=== PATIENT | female | born 1985 | race American Indian/Alaskan Native ===

== ENCOUNTER 2016-08-31 06:08 | Emergency (ER) | payer MEDICAID ==
[2016-08-31 06:28] VITALS: BP 110/73
[2016-08-31] MEDS ORDERED: MOTRIN PO ONE (08:42)
--- NOTE | 2016-08-31 08:46 | Emergency Department Report ---
ED ENT HPI - General Chief complaint: Earache Stated complaint: RT SIDE PAIN/EARACHE FACIAL AND HEAD SWELLING Time Seen by Provider: 08/31/16 08:41 Source: patient Mode of arrival: Ambulatory Limitations: No Limitations - History of Present Illness Initial comments: 31-year-old -[place] female comes in for complaint of right side pain and ear ache with facial swelling since yesterday. Patient denies any fever or chills she does report she has a few body aches she took Tessa Aspirin yesterday with no relief. Patient currently has no past medical history currently takes no medications and has no known drug allergies. She denies any recent URIs no allergies. She denies swimming denies washing her hair recently. MD complaint: ear pain, other (right jaw pain) - Related Data Home Medications Medication Instructions Recorded Confirmed Last Taken Pnv with Ca,No.72/Iron/FA 1 tab PO DAILY 02/13/13 02/13/13 02/12/13 [ Plus Tablet] 1 tab Previous Rx's Medication Instructions Recorded Last Taken Type Amoxicillin [Amoxicillin TAB] 875 mg PO BID #14 tablet 08/31/16 Unknown Rx Ofloxacin 0.3% [Ocuflox] 5 drops OP QDAY #1 bottle 08/31/16 Unknown Rx Allergies Allergy/AdvReac Type Severity Reaction Status Date / Time No Known Allergies Allergy Verified 02/12/13 08:43 ED Dental HPI - General Chief complaint: Earache Stated complaint: RT SIDE PAIN/EARACHE FACIAL AND HEAD SWELLING Time Seen by Provider: 08/31/16 08:41 Source: patient Mode of arrival: Ambulatory Limitations: No Limitations - Related Data Home Medications Medication Instructions Recorded Confirmed Last Taken Pnv with Ca,No.72/Iron/FA 1 tab PO DAILY 02/13/13 02/13/13 02/12/13 [ Plus Tablet] 1 tab Previous Rx's Medication Instructions Recorded Last Taken Type Amoxicillin [Amoxicillin TAB] 875 mg PO BID #14 tablet 08/31/16 Unknown Rx Ofloxacin 0.3% [Ocuflox] 5 drops OP QDAY #1 bottle 08/31/16 Unknown Rx Allergies Allergy/AdvReac Type Severity Reaction Status Date / Time No Known Allergies Allergy Verified 02/12/13 08:43 ED Review of Systems ROS: Stated complaint: RT SIDE PAIN/EARACHE FACIAL AND HEAD SWELLING Other details as noted in HPI ED Past Medical Hx - Past Medical History Previous Medical History?: No Hx Hypertension: No Hx Congestive Heart Failure: No Hx Diabetes: No Hx Deep Vein Thrombosis: No Hx Renal Disease: No Hx Sickle Cell Disease: No Hx Seizures: No Hx Asthma: No Hx COPD: No - Surgical History Past Surgical History?: No - Social History Smoking Status: Never Smoker Substance Use Type: None - Medications Home Medications: Home Medications Medication Instructions Recorded Confirmed Last Taken Type Pnv with Ca,No.72/Iron/FA 1 tab PO DAILY 02/13/13 02/13/13 02/12/13 History [ Plus Tablet] 1 tab Amoxicillin [Amoxicillin TAB] 875 mg PO BID #14 tablet 08/31/16 Unknown Rx Ofloxacin 0.3% [Ocuflox] 5 drops OP QDAY #1 bottle 08/31/16 Unknown Rx ED Physical Exam - General Limitations: No Limitations General appearance: alert - Head Head exam: Present: atraumatic - Eye Eye exam: Present: normal appearance - Expanded ENT Exam Expanded Ear exam: Present: other (auricle tenderness to the right as well as tragus tenderness to the right ear) TM/Canal exam: Canal Discharge: Right TM (canals are very moist, erythematous, edematous), Canal Tenderness: Right TM Mouth exam: Present: normal external inspection - Neck Neck exam: Present: normal inspection, full ROM. Absent: tenderness, lymphadenopathy - Respiratory Respiratory exam: Present: normal lung sounds bilaterally - Cardiovascular Cardiovascular Exam: Present: regular rate, normal rhythm, normal heart sounds ED Course Vital Signs 08/31/16 06:24 Temperature 98.6 F Pulse Rate 82 Respiratory 18 Rate Blood Pressure 110/73 O2 Sat by Pulse 97 Oximetry ED Medical Decision Making - Medical Decision Making Patient's been evaluated by this provider in fast track. Discussed with patient that appears that she has a otitis externa and not able to appreciate the tympanic membrane secondary to tenderness on examination. Discussed the patient placed on antibiotics orally to rule out an otitis media. I discussed with patient that we will refer her to ear nose and throat for further evaluation. I discussed with patient I would give her ibuprofen to address her pain here now. We will discharge her home and ibuprofen. Patient verbalized understanding Critical care attestation.: If time is entered above; I have spent that time in minutes in the direct care of this critically ill patient, excluding procedure time. ED Disposition Clinical Impression: Otitis externa Qualifiers: Otitis externa type: unspecified type Laterality: right Chronicity: acute Qualified Code(s): H60.501 - Unspecified acute noninfective otitis externa, right ear Otitis media Qualifiers: Otitis media type: unspecified nonsuppurative Laterality: right Qualified Code( s): H65.91 - Unspecified nonsuppurative otitis media, right ear Disposition: DISCHARGED TO HOME OR SELFCARE Is pt being admited?: No Does the pt Need Aspirin: No Condition: Stable Instructions: Otitis Externa (ED), Otitis Media (ED) Additional Instructions: Complete antibiotics as prescribed. If symptoms persist or gets worse please follow up in the emergency room or follow-up with the ear, nose and throat specialist I have listed below. Prescriptions: Amoxicillin [Amoxicillin TAB] 875 mg PO BID #14 tablet Ofloxacin 0.3% [Ocuflox] 5 drops OP QDAY #1 bottle Referrals: PRIMARY MD WAQAR [Primary Care Provider] - 3-5 Days TRANG CARDONA MD [Staff Physician] - 3-5 Days Forms: Work/School Release Form(ED)
== END 2016-08-31 09:04 | disposition home or self-care (01) ==
LOC: ED 06:08
DX: H60.501 Unspecified acute noninfective otitis externa, right ear (principal); H65.91 Unspecified nonsuppurative otitis media, right ear
CPT/HCPCS: 99282

== ENCOUNTER 2019-06-03 17:57 | Inpatient (IN) | payer MEDICAID ==
[2019-06-03] MEDS ORDERED: MINERAL OIL 30 ML ORAL LIQD PO PRN (19:19)
[2019-06-03] MEDS ORDERED: ONDANSETRON 4 MG/2 ML INJ IV PRN (19:19)
[2019-06-03] MEDS ORDERED: BUTORPHANOL 2 MG/1 ML INJ IV PRN (19:19)
[2019-06-03] MEDS ORDERED: ePHEDrine SULFATE 50 MG/1 ML INJ IV PRN (19:19)
[2019-06-03] MEDS ORDERED: TERBUTALINE 1 MG/1 ML INJ IVP PRN (19:19)
[2019-06-03] MEDS ORDERED: LIDOCAINE (2%) 20 MG/1 ML VIAL 20 ML MDV INFILTRATI ONE (19:19)
[2019-06-03] MEDS ORDERED: TERBUTALINE 1 MG/1 ML INJ SUB-Q PRN (19:19)
[2019-06-03] MEDS ORDERED: fentaNYL 100 MCG/2 ML INJ IV PRN (19:19)
[2019-06-03] MEDS ORDERED: AMPICILLIN/NS 2 GM/100 ML 2 GM/100 ML BAG IV ONE (19:19)
[2019-06-03] MEDS ORDERED: PROMETHAZINE 25 MG TAB PO PRN (19:19)
[2019-06-03 19:43] LABS: Hematocrit 30.8 % (30.3-42.9); Hemoglobin 10.8 gm/dl (10.1-14.3); Mean Corpuscular HGB Conc 35 % (30-34); Mean Corpuscular Volume 71 fl (79-97); Platelet Count 279 K/mm3 (140-440); Red Blood Count 4.33 M/mm3 (3.65-5.03); Red Cell Distribution Width 17.8 % (13.2-15.2)
--- NOTE | 2019-06-03 19:48 | History and Physical Report ---
History of Present Illness Date of examination: 06/03/19 Date of admission: 06/03/2019 Chief complaint: Pt presents with c/o uc occurring q 3 min. History of present illness: 34 y/o AA presents at 40wks gestation. She initiated care at [facility] location at 17 wks. Pt has been co managed by [facility] r/t obesity but has been non complaint with f/u ob and [facility] visits. She reports at [facility] with c/o uc q 3 min. Pt admits to pos FM and denies any vag bleeding. Labs: A pos, Antibody screen neg, PLt 360, Rubella immune, RPR non reactive, HIV neg, H&H 11.3/33.9%, gc/chly/trich neg. GBS pos Past History Past Medical History: no pertinent history Past Surgical History: no surgical history [employer] UND[employer]ITER History: abnormal PAP smear Family/Genetic History: hypertension, other Social history: no significant social history - Obstetrical History Expected Date of Delivery: 06/03/19 Actual Gestation: 40 Week(s) 0 Day(s) : 5 Para: 2 Hx # Term Pregnancies: 2 Number of Pregnancies: 0 Spontaneous Abortions: 2 Induced : 0 Number of Living Children: 2 #2 Infant Gender: Female Method of Delivery: Vaginal Complications: none #1 Method of Delivery: Vaginal Complications: none Medications and Allergies Allergies Allergy/AdvReac Type Severity Reaction Status Date / Time No Known Allergies Allergy Verified 06/03/19 18:03 Home Medications Medication Instructions Recorded Confirmed Last Taken Type Pnv with Ca,No.72/Iron/FA 1 tab PO DAILY 02/13/13 06/03/19 02/12/13 History [ Plus Tablet] 1 tab Amoxicillin [Amoxicillin TAB] 875 mg PO BID #14 tablet 08/31/16 06/03/19 Unknown Rx Ofloxacin 0.3% [Ocuflox 0.3% opth] 5 drops OP QDAY #1 bottle 08/31/16 06/03/19 Unknown Rx Active Meds: Active Medications Butorphanol Tartrate (Stadol) 2 mg IV Q2H PRN PRN Reason: Pain , Severe (7-10) Ephedrine Sulfate (Ephedrine Sulfate) 10 mg IV Q2M PRN PRN Reason: Hypotension Fentanyl (Sublimaze) 100 mcg IV Q2H PRN PRN Reason: Labor Pain Oxytocin/Sodium Chloride (Pitocin/Ns 20 Unit/1000ml Drip) 20 units in 1,000 mls @ 125 mls/hr IV DIRECT WOLFGANG Oxytocin/Sodium Chloride (Pitocin/Ns 30 Unit/500ml) 30 units in 500 mls @ 1 mls/hr IV TITR WOLFGANG; Protocol Lactated Ringer's (Lactated Ringers) 1,000 mls @ 125 mls/hr IV DIRECT WOLFGANG Ampicillin Sodium (Ampicillin/Ns 1 Gm/50 Ml) 1 gm in 50 mls @ 100 mls/hr IV Q4HR WOLFGANG; Protocol Ampicillin Sodium (Ampicillin/Ns 2 Gm/100 Ml) 2 gm in 100 mls @ 100 mls/hr IV ONCE ONE; Protocol Stop: 06/03/19 20:18 Lidocaine (Xylocaine 2%) 20 ml INFILTRATI ONCE ONE Stop: 06/03/19 19:20 Mineral Oil (Mineral Oil) 30 ml PO QHS PRN PRN Reason: Constipation Miscellaneous Medication (Pnv With Ca,No.72/Iron/Fa [ Plus Tablet]) 1 tab PO DAILY WOLFGANG Ondansetron HCl (Zofran) 4 mg IV Q8H PRN PRN Reason: Nausea And Vomiting Promethazine HCl (Phenergan) 25 mg PO Q6H PRN PRN Reason: Nausea And Vomiting Terbutaline Sulfate (Brethine) 0.25 mg SUB-Q ONCE PRN PRN Reason: Hyperstimulation/Hypertonicity Terbutaline Sulfate (Brethine) 0.25 mg IVP ONCE PRN PRN Reason: Hyperstimulation/Hypertonicity Review of Systems All systems: negative - Vital Signs Vital signs: Vital Signs Pulse Pulse Ox 89 100 06/03/19 18:11 06/03/19 18:11 Temp Pulse Resp BP Pulse Ox 98.1 F 76 16 100 06/03/19 18:52 06/03/19 19:06 06/03/19 18:52 06/03/19 19:06 - Physical Exam Breasts: Positive: normal Abdomen: Positive: normal appearance, soft, normal bowel sounds Genitourinary (Female): Positive: normal external genitalia, normal perenium Vagina: Positive: normal moisture Uterus: Positive: other (gravid) Extremities: Positive: normal - Obstetrical FHR: category 1 FHR comments: FHT 130 with mod bowen pos accels and neg decels Uterine Contraction Monitor Mode: External Cervical Dilatation: 4 Cervical Effacement Percentage: 50 station: -3 Uterine Contraction Frequency (min): q3 Results All other labs normal. Assessment and Plan A: IUP @ 40 wks CAT I FHT + GBS Obesity P: Admit to L&D Abt protocal for pos GBS Pain meds prn Expectant mtg Anticipate - Patient Problems (1) 40 weeks gestation of Current Visit: Yes Status: Acute (2) Obesity (BMI 30-39.9) Current Visit: Yes Status: Acute (3) Positive GBS test Current Visit: Yes Status: Acute
[2019-06-03] MEDS ORDERED: OXYTOCIN DRIP 30 UNITS/500 ML BAG IV SCH (20:00)
[2019-06-03] MEDS: LACTATED RINGERS 1,000 ML IV SCH (22:56)
[2019-06-04] MEDS: AMPICILLIN/NS 1 GM/50 ML 1 GM/50 ML BAG IV SCH ×2 (03:53→08:06)
[2019-06-04] MEDS: LACTATED RINGERS 1,000 ML IV SCH (08:06)
[2019-06-04] MEDS: PRENATAL VIT27-FE FUMARATE-FOLIC ACID VIT TAB PO SCH (08:07)
--- NOTE | 2019-06-04 08:41 | Progress Note ---
Assessment and Plan A: IUP@40.1 wks CAT I FHT p: AROM cl fluid Continue monitoring with pit Anticipate - Patient Problems (1) 40 weeks gestation of Current Visit: Yes Status: Acute (2) Obesity (BMI 30-39.9) Current Visit: Yes Status: Acute (3) Positive GBS test Current Visit: Yes Status: Acute Subjective - Subjective Interval history: 34 y/o AA presents at 40wks gestation. She initiated care at [facility] location at 17 wks. Pt has been co managed by [facility] r/t obesity but has been non complaint with f/u ob and [facility] visits. She reports at [facility] with c/o uc q 3 min. Pt admits to pos FM and denies any vag bleeding. Labs: A pos, Antibody screen neg, PLt 360, Rubella immune, RPR non reactive, HIV neg, H&H 11.3/33.9%, gc/chly/trich neg. GBS pos Objective - Vital Signs Vital Signs: Vital Signs - 12hr 06/03/19 06/04/19 06/04/19 20:42 02:27 02:28 Temperature 98.8 F Pulse Rate 85 60 80 Respiratory 18 Rate Blood Pressure 113/73 [Right] O2 Sat by Pulse 94 94 Oximetry 06/04/19 06/04/19 06/04/19 02:32 02:33 02:38 Temperature Pulse Rate 76 Respiratory Rate Blood Pressure [Right] O2 Sat by Pulse 82 L 82 L 96 Oximetry 06/04/19 06/04/19 06/04/19 02:43 02:48 02:53 Temperature Pulse Rate 76 70 81 Respiratory Rate Blood Pressure [Right] O2 Sat by Pulse 98 99 99 Oximetry 06/04/19 06/04/19 06/04/19 02:58 03:03 03:08 Temperature Pulse Rate 78 91 H 67 Respiratory Rate Blood Pressure [Right] O2 Sat by Pulse 100 99 100 Oximetry 06/04/19 06/04/19 06/04/19 03:13 03:18 03:23 Temperature Pulse Rate 82 89 84 Respiratory Rate Blood Pressure [Right] O2 Sat by Pulse 98 99 99 Oximetry 06/04/19 06/04/19 06/04/19 03:28 03:33 03:46 Temperature Pulse Rate 80 86 105 H Respiratory Rate Blood Pressure [Right] O2 Sat by Pulse 97 97 99 Oximetry 06/04/19 06/04/19 06/04/19 03:51 03:56 04:01 Temperature Pulse Rate 100 H 84 90 Respiratory Rate Blood Pressure [Right] O2 Sat by Pulse 97 99 99 Oximetry 06/04/19 06/04/19 06/04/19 04:06 04:11 04:16 Temperature Pulse Rate 84 91 H 81 Respiratory Rate Blood Pressure [Right] O2 Sat by Pulse 100 99 100 Oximetry 06/04/19 06/04/19 06/04/19 04:21 04:26 04:31 Temperature Pulse Rate 85 82 79 Respiratory Rate Blood Pressure [Right] O2 Sat by Pulse 99 99 99 Oximetry 06/04/19 06/04/19 06/04/19 04:36 04:41 04:46 Temperature Pulse Rate 84 90 82 Respiratory Rate Blood Pressure [Right] O2 Sat by Pulse 98 99 98 Oximetry 06/04/19 06/04/19 06/04/19 04:51 04:56 05:01 Temperature Pulse Rate 83 84 89 Respiratory Rate Blood Pressure [Right] O2 Sat by Pulse 99 98 98 Oximetry 06/04/19 06/04/19 06/04/19 05:06 05:11 05:16 Temperature Pulse Rate 87 102 H 90 Respiratory Rate Blood Pressure [Right] O2 Sat by Pulse 98 99 99 Oximetry 06/04/19 06/04/19 06/04/19 05:21 05:26 05:30 Temperature Pulse Rate 71 75 79 Respiratory Rate Blood Pressure [Right] O2 Sat by Pulse 98 98 100 Oximetry 06/04/19 06/04/19 06/04/19 05:36 05:41 05:46 Temperature Pulse Rate 81 67 69 Respiratory Rate Blood Pressure [Right] O2 Sat by Pulse 97 100 98 Oximetry 06/04/19 06/04/19 06/04/19 05:51 05:56 06:01 Temperature Pulse Rate 68 78 68 Respiratory Rate Blood Pressure [Right] O2 Sat by Pulse 98 99 99 Oximetry 06/04/19 06/04/19 06/04/19 06:06 06:11 06:16 Temperature Pulse Rate 73 81 85 Respiratory Rate Blood Pressure [Right] O2 Sat by Pulse 98 96 97 Oximetry 06/04/19 06/04/19 06/04/19 06:21 06:26 06:31 Temperature Pulse Rate 78 91 H 76 Respiratory Rate Blood Pressure [Right] O2 Sat by Pulse 98 99 100 Oximetry 06/04/19 06/04/19 06/04/19 06:36 06:41 06:46 Temperature Pulse Rate 80 78 75 Respiratory Rate Blood Pressure [Right] O2 Sat by Pulse 100 98 97 Oximetry 06/04/19 06:51 Temperature Pulse Rate 83 Respiratory Rate Blood Pressure [Right] O2 Sat by Pulse 99 Oximetry - Exam Breasts: normal Abdomen: Present: normal appearance Uterus: Present: normal FHR: category 1 FHR comments: FHT 132 with mod bowen pos accels and no decels Uterine Contraction Monitor Mode: External Cervical Dilatation: 5 Cervical Effacement Percentage: 50 station: -2 Uterine Contraction Frequency (min): q3 Uterine Contraction Pattern: Regular Uterine Tone Measurement Phase: Resting Uterine Contraction Intensity: Moderate Extremities: normal - Labs Labs: Abnormal Labs 06/03/19 19:15 MCV 71 L MCH 25 L MCHC 35 H RDW 17.8 H Laboratory Results - last 24 hr 06/03/19 06/03/19 19:15 19:15 WBC 8.2 RBC 4.33 Hgb 10.8 Hct 30.8 MCV 71 L MCH 25 L MCHC 35 H RDW 17.8 H Plt Count 279 Blood Type A POSITIVE Antibody Screen Negative
[2019-06-04] MEDS ORDERED: [UNRECOGNIZED DRUG - REMARK] PO SCH (10:00)
--- NOTE | 2019-06-04 11:22 | Progress Note ---
Assessment and Plan A: IUP @ 40.1 wks CAT I FHT p: Continuing monitoring Anticipate - Patient Problems (1) 40 weeks gestation of Current Visit: Yes Status: Acute (2) Obesity (BMI 30-39.9) Current Visit: Yes Status: Acute (3) Positive GBS test Current Visit: Yes Status: Acute Subjective - Subjective Date of service: 06/04/19 Interval history: 34 y/o AA presents at 40wks gestation. She initiated care at [facility] at 17 wks. Pt has been co managed by [facility] r/t obesity but has been non complaint with f/u ob and [facility] visits. She reports at [facility] with c/o uc q 3 min. Pt admits to pos FM and denies any vag bleeding. Labs: A pos, Antibody screen neg, PLt 360, Rubella immune, RPR non reactive, HIV neg, H&H 11.3/33.9%, gc/chly/trich neg. GBS pos Objective - Vital Signs Vital Signs: Vital Signs - 12hr 06/04/19 06/04/19 06/04/19 02:27 02:28 02:32 Temperature Pulse Rate 60 80 Respiratory Rate Blood Pressure O2 Sat by Pulse 94 94 82 L Oximetry 06/04/19 06/04/19 06/04/19 02:33 02:38 02:43 Temperature Pulse Rate 76 76 Respiratory Rate Blood Pressure O2 Sat by Pulse 82 L 96 98 Oximetry 06/04/19 06/04/19 06/04/19 02:48 02:53 02:58 Temperature Pulse Rate 70 81 78 Respiratory Rate Blood Pressure O2 Sat by Pulse 99 99 100 Oximetry 06/04/19 06/04/19 06/04/19 03:03 03:08 03:13 Temperature Pulse Rate 91 H 67 82 Respiratory Rate Blood Pressure O2 Sat by Pulse 99 100 98 Oximetry 06/04/19 06/04/19 06/04/19 03:18 03:23 03:28 Temperature Pulse Rate 89 84 80 Respiratory Rate Blood Pressure O2 Sat by Pulse 99 99 97 Oximetry 06/04/19 06/04/19 06/04/19 03:33 03:46 03:51 Temperature Pulse Rate 86 105 H 100 H Respiratory Rate Blood Pressure O2 Sat by Pulse 97 99 97 Oximetry 06/04/19 06/04/19 06/04/19 03:56 04:01 04:06 Temperature Pulse Rate 84 90 84 Respiratory Rate Blood Pressure O2 Sat by Pulse 99 99 100 Oximetry 06/04/19 06/04/19 06/04/19 04:11 04:16 04:21 Temperature Pulse Rate 91 H 81 85 Respiratory Rate Blood Pressure O2 Sat by Pulse 99 100 99 Oximetry 06/04/19 06/04/19 06/04/19 04:26 04:31 04:36 Temperature Pulse Rate 82 79 84 Respiratory Rate Blood Pressure O2 Sat by Pulse 99 99 98 Oximetry 06/04/19 06/04/19 06/04/19 04:41 04:46 04:51 Temperature Pulse Rate 90 82 83 Respiratory Rate Blood Pressure O2 Sat by Pulse 99 98 99 Oximetry 06/04/19 06/04/19 06/04/19 04:56 05:01 05:06 Temperature Pulse Rate 84 89 87 Respiratory Rate Blood Pressure O2 Sat by Pulse 98 98 98 Oximetry 06/04/19 06/04/19 06/04/19 05:11 05:16 05:21 Temperature Pulse Rate 102 H 90 71 Respiratory Rate Blood Pressure O2 Sat by Pulse 99 99 98 Oximetry 06/04/19 06/04/19 06/04/19 05:26 05:30 05:36 Temperature Pulse Rate 75 79 81 Respiratory Rate Blood Pressure O2 Sat by Pulse 98 100 97 Oximetry 06/04/19 06/04/19 06/04/19 05:41 05:46 05:51 Temperature Pulse Rate 67 69 68 Respiratory Rate Blood Pressure O2 Sat by Pulse 100 98 98 Oximetry 06/04/19 06/04/19 06/04/19 05:56 06:01 06:06 Temperature Pulse Rate 78 68 73 Respiratory Rate Blood Pressure O2 Sat by Pulse 99 99 98 Oximetry 06/04/19 06/04/19 06/04/19 06:11 06:16 06:21 Temperature Pulse Rate 81 85 78 Respiratory Rate Blood Pressure O2 Sat by Pulse 96 97 98 Oximetry 06/04/19 06/04/19 06/04/19 06:26 06:31 06:36 Temperature Pulse Rate 91 H 76 80 Respiratory Rate Blood Pressure O2 Sat by Pulse 99 100 100 Oximetry 06/04/19 06/04/19 06/04/19 06:41 06:46 06:51 Temperature Pulse Rate 78 75 83 Respiratory Rate Blood Pressure O2 Sat by Pulse 98 97 99 Oximetry 06/04/19 06/04/19 06/04/19 08:46 09:01 09:30 Temperature 97.6 F Pulse Rate 84 90 Respiratory 16 Rate Blood Pressure 114/73 119/79 O2 Sat by Pulse Oximetry 06/04/19 06/04/19 06/04/19 10:20 10:30 11:01 Temperature 97.9 F Pulse Rate 77 85 Respiratory 16 Rate Blood Pressure 99/59 101/56 O2 Sat by Pulse Oximetry - Exam FHR: category 1 FHR comments: FHT 130 with mod bowen + accels neg decels Uterine Contraction Monitor Mode: External Cervical Dilatation: 7 Cervical Effacement Percentage: 80 station: -1 Uterine Contraction Frequency (min): q3 Uterine Contraction Pattern: Regular Uterine Tone Measurement Phase: Resting Uterine Contraction Intensity: Strong/Firm Extremities: normal - Labs Labs: Abnormal Labs 06/03/19 19:15 MCV 71 L MCH 25 L MCHC 35 H RDW 17.8 H Laboratory Results - last 24 hr 06/03/19 06/03/19 06/04/19 19:15 19:15 08:20 WBC 8.2 RBC 4.33 Hgb 10.8 Hct 30.8 MCV 71 L MCH 25 L MCHC 35 H RDW 17.8 H Plt Count 279 Hep Bs Antigen Non-reactive Blood Type A POSITIVE Antibody Screen Negative
[2019-06-04] MEDS ORDERED: LIDOCAINE (2%) 20 MG/1 ML VIAL 20 ML MDV INFILTRATI ONE (11:40)
[2019-06-04] MEDS ORDERED: miSOPROStol 200 MCG TAB PR ONE (12:30)
[2019-06-04] MEDS ORDERED: OXYTOCIN 10 UNIT/1 ML INJ ONE (12:31)
[2019-06-04] MEDS ORDERED: miSOPROStol 200 MCG TAB ONE (12:32)
[2019-06-04] MEDS: OXYTOCIN 20 UNIT/1000ML DRIP 20 UNITS/1,000 ML BAG IV SCH ×2 (12:43→14:02)
[2019-06-04] MEDS ORDERED: diphenhydrAMINE 50 MG CAP PO NR (13:00)
--- NOTE | 2019-06-04 13:20 | Procedure Note ---
OB Delivery Note - Delivery Date of Delivery: 06/04/19 Surgeon: TRANG HICKMAN [employer]: PRITESH FLOWER Estimated blood loss: other (600cc) - Vaginal Delivery position: OA Intrapartum events: shoulder dystocia Delivery augmentation: rupture of membranes, pitocin Delivery monitor: external FHT, external uterine Route of delivery: Delivery placenta: spontaneous Delivery laceration: 2nd degree Delivery repair: vicryl Anesthesia: local Delivery comments: Called to for delivery. Pt complete and pushing. of viable male . Head delivered with ease. After aprox 30 sec of trying to deliver infant's shoulders, a Shoulder Dystocia was called and 's shoulders were delivered easily with pt in Darlene position while suprapubic pressure was being applied. 8/9. After spontaneous delivery of placenta gushes of bright red blood was noted and pt's fundus became boggy. Hemostasis maintained with fundal massage, 10u of pitocin IM and Cytotec 800mcg MI. Upon uterine exploration a 2nd degree perineal laceration was noted and repaired with a 3-[address]-1. EBL 600 cc. Mom and baby stable. - A at 1 minute: 8 at 5 minutes: 9 Gender: Male (WT [id number] GMS)
[2019-06-04] MEDS ORDERED: PROMETHAZINE 25 MG TAB PO PRN (13:49)
[2019-06-04] MEDS ORDERED: diphenhydrAMINE 25 MG CAP PO PRN (13:49)
[2019-06-04] MEDS ORDERED: MAGNESIUM HYDROXIDE (MOM) ORAL LIQD UDC PO PRN (13:49)
[2019-06-04] MEDS ORDERED: LANOLIN/ZINC/DIMETHICONE (LANSINOH) 7 GM TP PRN (13:49)
[2019-06-04] MEDS ORDERED: PROMETHAZINE 25 MG RECT SUPP PR PRN (13:49)
[2019-06-04] MEDS ORDERED: ONDANSETRON 4 MG/2 ML INJ IV PRN (13:49)
[2019-06-04] MEDS ORDERED: WITCH HAZEL/ GLYCERIN PAD TP PRN (13:49)
[2019-06-04] MEDS ORDERED: ACETAMINOPHEN 325 MG TAB PO PRN (13:49)
[2019-06-04] MEDS: IBUPROFEN 600 MG TAB PO SCH ×2 (16:39→22:32)
[2019-06-05 01:02] LABS: Hematocrit 21.8 % (30.3-42.9); Hemoglobin 7.3 gm/dl (10.1-14.3)
[2019-06-05] MEDS: IBUPROFEN 600 MG TAB PO SCH ×4 (05:41→23:40)
[2019-06-05] MEDS ORDERED: IRON DEXTRAN COMPLEX 100 MG/2 ML INJ IM SCH ×2 (10:30→16:00)
--- NOTE | 2019-06-05 10:38 | Progress Note ---
Assessment and Plan - Patient Problems (1) Status post normal vaginal delivery Current Visit: Yes Status: Acute Plan to address problem: PPD 1 - stable Continue routine orders Discharge to home 06/06/19 Follow-up at [facility] as needed or in 6 weeks for exam (2) Single live Current Visit: Yes Status: Acute (3) Anemia due to blood loss, acute Current Visit: Yes Status: Acute Plan to address problem: Asymptomatic Infed 100mg IM x1 ordered Continue iron therapy Subjective - Subjective Date of service: 06/05/19 Principal diagnosis: PPD #1; s/p Interval history: see H&P, OB Progress Notes and OB Delivery Procedure Note Patient reports: appetite normal, voiding normally, pain well controlled, ambulating normally, no dizzy ambulation, no nauseated [place]: doing well, nursing well, bottle feeding Objective - Vital Signs Latest vital signs: Vital Signs Temp Pulse Resp BP BP BP Pulse Ox 06/05/19 07:44 98.2 F 78 20 92/52 95 06/05/19 05:41 20 06/05/19 00:56 98.4 F 88 20 107/61 98 06/04/19 22:32 18 06/04/19 20:33 20 06/04/19 20:15 98.4 F 76 20 98/63 06/04/19 15:48 97.7 F 18 118/70 06/04/19 13:59 73 114/55 06/04/19 13:52 73 113/59 06/04/19 13:45 97.9 F 20 06/04/19 13:00 75 109/59 06/04/19 12:30 106 H 137/77 06/04/19 12:03 90 193/93 06/04/19 11:31 81 107/61 06/04/19 11:01 85 101/56 Intake and Output 06/04/19 06/05/19 06/05/19 23:59 07:59 15:59 Intake Total 840 Output Total 1000 Balance -160 Intake: Oral 480 Intake, Free Water 360 Output: Urine 1000 Void 1000 Other: Total, Intake Amount 240 Total, Output Amount 600 # Voids Void 3 1 - Exam Cardiovascular: Present: Regular rate Lungs: Present: Clear to auscultation, Normal air movement Abdomen: Present: normal appearance, soft Vulva: both: laceration/episiotomy Uterus: Present: normal, firm, fundal height at umbilicus Extremities: Present: normal Comments: small lochia - Labs Labs: Abnormal lab results 06/05/19 Range/Units 00:51 Hgb 7.3 L D (10.1-14.3) gm/dl Hct 21.8 L D (30.3-42.9) %
--- NOTE | 2019-06-05 10:42 | Discharge Summary ---
Providers - Providers Date of Admission: 06/03/19 21:06 Date of discharge: 06/06/19 Attending physician: PIYUSH MCKEON Primary care physician: PIYUSH MCKEON Hospitalization Reason for admission: active labor, IUP at term Delivery: Procedure details: Delivery complicated by shoulder dystocia and hemorrhage Episiotomy: none Laceration: 2nd degree Other procedures: none complications: none Discharge diagnosis: IUP at term delivered [place] baby: male Hospital course: Uncomplicated Condition at discharge: Stable Disposition: DC-01 TO HOME OR SELFCARE - Discharge Diagnoses (1) Status post normal vaginal delivery Status: Acute (2) Single live Status: Acute (3) Anemia due to blood loss, acute Status: Acute Comment: Asymptomatic; s/p Infed 100mg IM x1 Continue ferrous sulfate 325mg by mouth twice daily Eat iron-rich foods Plan - Provider Discharge Summary Activity: routine, no sex for 6 weeks, no heavy lifting 4 weeks, no strenuous exercise Diet: routine Instructions: routine Additional instructions: [] Smoking cessation referral if applicable(refer to patient education folder for contact #) [] Refer to [facility]'s [facility] Booklet Call your doctor immediately for: * Fever > 100.5 * Heavy vaginal bleeding ( >1 pad per hour) * Severe persistent headache * Shortness of breath * Reddened, hot, painful area to leg or breast * Drainage or odor from incision. * Keep incision clean and dry at all times and follow doctor's instructions regarding bathing/showering - Follow up plan Follow up: PIYUSH MCKEON MD [Primary Care Provider] - 6 Weeks (Follow-up at [facility] as needed or in 6 weeks for exam)
[2019-06-05] MEDS: FERROUS SULFATE 325 MG TAB PO SCH ×2 (12:16→21:45)
[2019-06-05] MEDS: PRENATAL VIT27-FE FUMARATE-FOLIC ACID VIT TAB PO SCH (12:16)
[2019-06-06] MEDS: IBUPROFEN 600 MG TAB PO SCH ×2 (05:29→12:11)
[2019-06-06] MEDS: PRENATAL VIT27-FE FUMARATE-FOLIC ACID VIT TAB PO SCH (09:44)
[2019-06-06] MEDS: FERROUS SULFATE 325 MG TAB PO SCH (09:44)
[2019-06-06 13:10] VITALS: BP 108/66
== END 2019-06-06 14:10 | disposition home or self-care (01) | DRG 774 ==
LOC: TRG 17:57 → LD 21:06 → OB 06-04 16:10
PROVIDERS: ADMIT Obstetrics & Gynecology; ATTEND Obstetrics & Gynecology
PROC: 10E0XZZ Delivery of Products of Conception, External Approach (ICD-10-PCS; principal; 2019-06-04)
PROC: 0KQM0ZZ Repair Perineum Muscle, Open Approach (ICD-10-PCS; 2019-06-04)
DX: O99.824 Streptococcus B carrier state complicating childbirth (principal); O72.1 Other immediate postpartum hemorrhage; Z3A.40 40 weeks gestation of pregnancy; D62 Acute posthemorrhagic anemia; Z37.0 Single live birth; Z82.49 Family history of ischemic heart disease and other diseases of the circulatory system; O99.214 Obesity complicating childbirth; O66.0 Obstructed labor due to shoulder dystocia; O70.1 Second degree perineal laceration during delivery; O90.81 Anemia of the puerperium
CPT/HCPCS: 36415; 85014; 85018; 85027; 86706; 86850; 86900; 86901; 96360; 96361; 96365; 96366; 96374; 96375; G0378; J0290; J0595; J1750; J2590; J3010; J7120